=== PATIENT | female | born 1955 | race African-American/Black ===

== ENCOUNTER 2020-06-06 18:31 | Emergency (ER) | payer OTHER ==
[~2020-06-06] VITALS: Ht 170.2 cm; Wt 69.5 kg
[2020-06-06] MEDS ORDERED: CELE200 PO (19:02)
[2020-06-06] MEDS ORDERED: LINA145C PO (19:02)
[2020-06-06] MEDS ORDERED: ISON100L PO (19:02)
[2020-06-06] MEDS ORDERED: ARIP10TA8 PO (19:02)
[2020-06-06] MEDS ORDERED: GABA-1201 PO (19:02)
[2020-06-06] MEDS ORDERED: LIDO35.44 TD (19:02)
[2020-06-06] MEDS ORDERED: ZONI100C31 PO (19:02)
[2020-06-06] MEDS ORDERED: ATOR40TA28 PO (19:02)
[2020-06-06] MEDS ORDERED: PROP20TA18 PO (19:02)
[2020-06-06] MEDS ORDERED: DULO-8 PO (19:02)
[2020-06-06] MEDS ORDERED: HYDROCODONE/ACETAMINOPHEN 5-325 MG TABLET PO ONE (21:00)
[2020-06-06 22:36] VITALS: BP 136/67
== END 2020-06-06 23:12 | disposition home or self-care (01) ==
LOC: EMS 18:31
DX: S70.01XA Contusion of right hip, initial encounter (principal); M54.2 Cervicalgia; M54.5 Low back pain; M25.521 Pain in right elbow; I10 Essential (primary) hypertension; F17.210 Nicotine dependence, cigarettes, uncomplicated; W00.0XXA Fall on same level due to ice and snow, initial encounter; Y93.89 Activity, other specified; Y92.89 Other specified places as the place of occurrence of the external cause; Y99.8 Other external cause status
CPT/HCPCS: 70450; 72100; 72125; 73502